=== PATIENT | male | born 1970 | race Caucasian/White ===

== ENCOUNTER 2020-07-18 15:20 | Emergency (ER) | payer OTHER ==
[~2020-07-18] VITALS: Ht 170.2 cm; Wt 95.2 kg
[~2020-07-18 15:20] MED LIST: ALLERGY10 MG PO; ARICEPT10 MG PO; BUPROPION HCL100 MG PO; CLONAZEPAM1 MG PO; CYCLOBENZAPRINE10 MG PO; D3 DOTS2000 UNIT PO; ENDOCET 7.5-321 EACH PO; IBUPROFEN600 MG PO; METHOCARBAMOL500 MG PO; MINIPRESS1 MG PO; MULTIVITAMINS1 EAC7 PO; NAPROXEN500 MG PO; PANTOPRAZOLE SO40 MG PO; PRAZOSIN HCL2 MG PO; PROPRANOLOL HCL20 MG PO; RANITIDINE HCL150 MG PO; TYLENOL WITH C1 EACH PO; VALIUM5 MG PO; VITAMIN D31000 UNI1 PO
[2020-07-18] MEDS ORDERED: SUCRALFATE1 GM (15:49)
[2020-07-18] MEDS ORDERED: ATIVAN1 MG (15:49)
[2020-07-18] MEDS ORDERED: ARTHRITIS PAIN100 GM (15:49)
[2020-07-18] MEDS ORDERED: PAROXETINE HCL20 MG (15:50)
[2020-07-18] MEDS ORDERED: CLARITIN10 M2 (15:50)
[2020-07-18] MEDS ORDERED: MELATONIN10 MG (15:51)
[2020-07-18] MEDS ORDERED: VIAGRA100 MG (15:51)
== END 2020-07-18 17:26 | disposition home or self-care (01) ==
LOC: ED 15:20
DX: S83.92XA Sprain of unspecified site of left knee, initial encounter (principal); X50.1XXA Overexertion from prolonged static or awkward postures, initial encounter; Z79.899 Other long term (current) drug therapy
CPT/HCPCS: 73560; 99283-25

== ENCOUNTER 2020-11-17 08:47 | Emergency (ER) | payer OTHER ==
[~2020-11-17] VITALS: Ht 170.2 cm; Wt 102.1 kg
[~2020-11-17 08:47] MED LIST changes: +ARTHRITIS PAIN100 GM; +ATIVAN1 MG; +CLARITIN10 M2; +MELATONIN10 MG; +PAROXETINE HCL20 MG; +SUCRALFATE1 GM; +VIAGRA100 MG
[2020-11-17] MEDS ORDERED: NEOMYCIN-POLYMY10 M1 OTIC (12:35)
== END 2020-11-17 12:42 | disposition home or self-care (01) ==
LOC: ED 08:47
DX: H60.91 Unspecified otitis externa, right ear (principal); Z79.899 Other long term (current) drug therapy
CPT/HCPCS: 99282

== ENCOUNTER 2023-12-03 17:19 | Emergency (ER) | payer OTHER ==
[~2023-12-03] VITALS: Ht 170.2 cm; Wt 103.5 kg
[~2023-12-03 17:19] MED LIST changes: +NEOMYCIN-POLYMY10 M1 OTIC
[2023-12-03] MEDS ORDERED: CYMBALTA30 MG PO (18:49)
[2023-12-03] MEDS ORDERED: LISINOPRIL10 MG PO (18:50)
[2023-12-03 19:43] VITALS: BP 126/83
== END 2023-12-03 19:43 | disposition home or self-care (01) ==
LOC: ED 17:19
DX: S43.101A Unspecified dislocation of right acromioclavicular joint, initial encounter (principal); Z88.6 Allergy status to analgesic agent; Z88.8 Allergy status to other drugs, medicaments and biological substances; Z79.899 Other long term (current) drug therapy; X50.3XXA Overexertion from repetitive movements, initial encounter
CPT/HCPCS: 73030; 99283

== ENCOUNTER 2024-02-17 17:52 | Emergency (ER) | payer OTHER ==
[~2024-02-17] VITALS: Ht 170.2 cm; Wt 104.8 kg
[~2024-02-17 17:52] MED LIST changes: +CYMBALTA30 MG PO; +LISINOPRIL10 MG PO
[2024-02-17] MEDS ORDERED: NEOMYCIN/POLYMYXIN/HYDROCORT 10 ML HOME.PACK OTIC ONE (20:00)
[2024-02-17 20:14] VITALS: BP 127/86
== END 2024-02-17 20:15 | disposition home or self-care (01) ==
LOC: ED 17:52
DX: S00.411A Abrasion of right ear, initial encounter (principal); X58.XXXA Exposure to other specified factors, initial encounter; Z88.8 Allergy status to other drugs, medicaments and biological substances; Z88.5 Allergy status to narcotic agent; Z79.899 Other long term (current) drug therapy
CPT/HCPCS: 99282

== ENCOUNTER 2024-06-08 08:20 | Day surgery (SDC) | payer OTHER ==
[~2024-06-08] VITALS: Ht 170.2 cm; Wt 102.0 kg
[~2024-06-08 08:20] MED LIST changes: +CEFAZOLIN SODIUM 2 GM/20 ML SYR IV SCH; +HYDROXYZINE HCL10 MG PO; +IBLOOD GLUCOSE TEST STRIP 1 EA TEST VI PRN; +LACTATED RINGER'S 1,000 ML IV SCH; +LIDOCAINE HCL 0.5% 50 ML SDV ONE; +LIDOCAINE HCL 1% 5 ML SDV INJ ONE; +METFORMIN HCL500 MG PO; +MIDAZOLAM HCL 2 MG/2 ML VIAL ONE; +propofoL 200 MG/20 ML VIAL ONE
[2024-06-08 08:39] VITALS: BP 127/89
--- NOTE | 2024-06-08 09:08 | NUR ---
Nick ARAGON GOING TO DR CLARK THEN RETURNING
[2024-06-08] MEDS ORDERED: MIDAZOLAM HCL 2 MG/2 ML VIAL ONE (09:43)
[2024-06-08] MEDS ORDERED: TRAMADOL HCL 50 MG TAB PO PRN (09:45)
--- NOTE | 2024-06-08 09:52 | NUR ---
DR RIVAS IN TO [place] STRAIGHT TOOTH GEAR GENERATOR OPERATOR DC IN TO TALK WITH PT.
[2024-06-08] MEDS ORDERED: TRAMADOL HCL50 MG PO (10:18)
--- NOTE | 2024-06-08 10:34 | NUR ---
06/08/24 1034 Diana Peters 1018-PT ARRIVES TO PACU VIA STRERTCHER, PT RESTING SEMI FOWLERS, PT REACTIVE TO STIMULI BUT CONTINUES TO REST W/ EYES CLOSED, VSS ON 6L VIA MASK, RR EVEN AND UNLABORED. LT WRIST ELEVATED ON PILLOW AND ICE PACK APPLIED.
[2024-06-08 10:50] VITALS: BP 140/81
--- NOTE | 2024-06-11 08:25 | OR ---
[facility] [address], [place] [address] Signed DATE OF OPERATION: 06/08/2024 SURGEON: Nichole Oconnor MD PREOPERATIVE DIAGNOSIS: Left carpal tunnel syndrome. POSTOPERATIVE DIAGNOSIS: Left carpal tunnel syndrome. PROCEDURE PERFORMED: Left carpal tunnel release. COFFEE ROASTER: None. ANESTHESIA: Cromberg block. TOURNIQUET TIME: 16 minutes. BRIEF HISTORY: Ghassan is a 53-year-old gentleman with progressive worsening of carpal tunnel symptoms. Risks and benefits of operative treatment were discussed with him and he elected to proceed. DESCRIPTION OF PROCEDURE: Once consent was obtained, he was taken to the operating room. After adequate anesthesia, he was left on the day surgery bed with a hand table. The arm was prepped and draped in a standard sterile fashion. The wrist was approached through a standard 2 cm incision. This was carried through skin and subcutaneous tissue. All bleeders were cauterized as we went. The transverse carpal ligament was then identified under loupe magnification and was released approximated 1 cm and distally to the distal extent. Some difficulty due to the thickness of his hand was obtained, but we eventually got the entire transverse carpal ligament released. The wound was copiously irrigated and closed with 3-0 nylon. The skin was injected with 7 mL of 0.25% Marcaine plain. Wound was dressed with Adaptic, ABD, and Garth wrap. He tolerated the procedure well. All sponge, needle, and instrument counts were correct. Electronically Signed By: NICHOLE OCONNOR MD 06/11/24 0825 PATIENT NAME: GHASSAN SOTOMAYOR OPERATIVE REPORT DATE OF : 66 REPORT #: [id number] PHYSICIAN: NICHOLE COONNOR MD PCP: MARLEEN MCINTOSH MD REPORT IS CONFIDENTIAL AND NOT TO BE RELEASED WITHOUT AUTHORIZATION [address] [address] Signed Nichole Oconnor MD /PETAR /[id number] Copies: ~ Electronically Signed By: NICHOLE OCONNOR MD 06/11/24 0825 PATIENT NAME: GHASSAN SOTOMAYOR OPERATIVE REPORT DATE OF : 66 REPORT #: [id number] PHYSICIAN: NICHOLE OCONNOR MD PCP: MARLEEN MCINTOSH MD REPORT IS CONFIDENTIAL AND NOT TO BE RELEASED WITHOUT AUTHORIZATION
== END 2024-06-08 11:00 | disposition home or self-care (01) ==
LOC: DS 08:20
PROVIDERS: ATTEND Specialist
PROC: 01N50ZZ Release Median Nerve, Open Approach (ICD-10-PCS; principal; 2024-06-08 10:30)
DX: G56.03 Carpal tunnel syndrome, bilateral upper limbs (principal); F32.A Depression, unspecified; K21.9 Gastro-esophageal reflux disease without esophagitis; Z88.8 Allergy status to other drugs, medicaments and biological substances; Z88.5 Allergy status to narcotic agent; Z79.899 Other long term (current) drug therapy
CPT/HCPCS: 01810; J0690; J2250; J2704; J7121